=== PATIENT | female | born 1955 | race Caucasian/White ===

== ENCOUNTER 2019-12-14 17:04 | Emergency (ER) | payer MEDICARE, BC ==
[~2019-12-14] VITALS: Ht 165.1 cm; Wt 75.0 kg
[2019-12-14 17:10] VITALS: BP 163/84
--- NOTE | 2019-12-14 17:42 | PHYS DOC ---
Past History Past Medical History: Depression, Hypertension Past Surgical History: Appendectomy, Other Additional Past Surgical Histo: LEFT KNEE, CATARACTS, C-SPINE FUSION Alcohol Use: Occasionally Additional Alcohol Information: REPORTS OCCASIONAL TO HEAVY Adult General Chief Complaint Chief Complaint: HEAD, FACE, NECK, TRAUMA HPI HPI Patient is a 64-year-old female who presents for facial trauma. Patient reports suffering a fall greater than 7 days ago landing on her left parietal lobe area and left orbit. Patient denies any loss of consciousness but admits dull headache ever since. She does not take any blood thinners but admits she has been taking several aspirin for other chronic aches and pains for past 1 month. No vision changes, no falls since, no changes in motor or sensory function, no focal deficits reported Review of Systems Review of Systems Fourteen body systems of review of systems have been reviewed. See HPI for pertinent positives and negative responses, other reddy all other systems are negative, non-pertinent or non-contributory Allergies Allergies Allergies Coded Allergies Type Severity Reaction Last Updated Verified amoxicillin Allergy Unknown 12/14/19 Yes Physical Exam Physical Exam Constitutional: Well developed, well nourished, no acute distress, non-toxic appearance. HENT: Normocephalic, tenderness to palpation of parietal lobe area without any abnormalities seen or felt, ecchymosis around left orbit without palpable abnormality but increased tenderness to lateral portion of orbit, no crepitus, bilateral external ears normal, oropharynx moist, no oral exudates, nose normal. Eyes: PERRLA, EOMI, conjunctiva normal, no discharge. Neck: Normal range of motion, no tenderness, supple, no stridor. Cardiovascular: Heart rate regular, sinus rhythm, no murmurs rubs or gallops Lungs & Thorax: Bilateral breath sounds clear to auscultation Abdomen: Bowel sounds normal, soft, no tenderness, no masses, no pulsatile m asses. Nonsurgical abdomen, no peritoneal signs Skin: Warm, dry, no erythema, no rash. Back: No tenderness, no CVA tenderness. Extremities: No tenderness, no cyanosis, no clubbing, ROM intact, no edema. Neurologic: Alert and oriented X 3, grossly normal motor & sensory function, no focal deficits noted. Psychologic: Affect normal, judgement normal, mood normal. Current Patient Data Vital Signs Vital Signs Date Time Temp Pulse Resp B/P (MAP) Pulse Ox O2 Delivery O2 Flow Rate FiO2 10/26/20 17:10 97.9 87 20 163/84 (110) 97 Room Air EKG EKG [] Radiology/Procedures Radiology/Procedures PROCEDURE: CT HEAD WO CONTRAST Exam: CT head and orbits without contrast INDICATION: Fall today left parietal area TECHNIQUE: Sequential axial images through the head and orbits were obtained without the administration of IV contrast. Comparisons: None FINDINGS: Head: No focal parenchymal lesion or hemorrhage is identified. There is no midline shift or sulcal effacement. No acute vascular territory infarction is identified. Perry-white distinction is preserved. The ventricular system is within normal limits without compression hydrocephalus. The basal cisterns are well maintained. Orbits: Mild extra cranial soft tissue scalp contusion overlying the left lateral orbital ridge. Globes and orbital contents are normal. The visualized portions of the paranasal sinuses and mastoid air cells are well-pneumatized. No acute fractures. IMPRESSION: 1. Mild extra cranial soft tissue scalp contusion overlying the left lateral orbital ridge. Globes and contents are normal. 2. No acute intracranial abnormality. Exposure: One or more of the following in the visualized dose reduction techniques were utilized for this examination: 1. Automated exposure control 2. Adjustment of the MA and/or KV according to patient size Use of iterative of reconstructive technique Electronically signed by: Kay Cabrera MD (12/14/2019 6:18 PM) [facility] Heart Score Risk Factors: Risk Factors: DM, Current or recent (<one month) smoker, HTN, HLP, family history of CAD, obesity. Risk Scores: Risk Factors: DM, Current or recent (<one month) smoker, HTN, HLP, family history of CAD, obesity. Course & Med Decision Making Course & Med Decision Making Pertinent Labs and Imaging studies reviewed. (See chart for details) Discussed most likely diagnosis of head contusion with patient Continued supportive care with ice and Tylenol for as needed pain advised. Patient has PCP follow-up scheduled in upcoming 14 days which I feel is appropriate Strict return precautions were discussed with good understanding, all questions and concerns addressed prior to ER departure in stable condition Dragon Disclaimer Dragon Disclaimer This electronic medical record was generated, in whole or in part, using a voice recognition dictation system. Departure Departure: Impression: Primary Impression: Fall Additional Impression: Pain of left orbit Disposition: 01 DC HOME SELF CARE/HOMELESS Condition: STABLE Referrals: PCP,NO (PCP) Problem Qualifiers TANIA SWEENEY DO Dec 14, 2019 17:42
--- NOTE | 2019-12-14 18:20 | RAD ---
Exam: CT head and orbits without contrast INDICATION: Fall today left parietal area TECHNIQUE: Sequential axial images through the head and orbits were obtained without the administration of IV contrast. Comparisons: None FINDINGS: Head: No focal parenchymal lesion or hemorrhage is identified. There is no midline shift or sulcal effacement. No acute vascular territory infarction is identified. Perry-white distinction is preserved. The ventricular system is within normal limits without compression hydrocephalus. The basal cisterns are well maintained. Orbits: Mild extra cranial soft tissue scalp contusion overlying the left lateral orbital ridge. Globes and orbital contents are normal. The visualized portions of the paranasal sinuses and mastoid air cells are well-pneumatized. No acute fractures. IMPRESSION: 1. Mild extra cranial soft tissue scalp contusion overlying the left lateral orbital ridge. Globes and contents are normal. 2. No acute intracranial abnormality. Exposure: One or more of the following in the visualized dose reduction techniques were utilized for this examination: 1. Automated exposure control 2. Adjustment of the MA and/or KV according to patient size Use of iterative of reconstructive technique Electronically signed by: Kay Cabrera MD (12/14/2019 6:18 PM) [facility]
== END 2019-12-14 18:33 | disposition home or self-care (01) ==
LOC: ER 17:04
DX: R51.9 Headache, unspecified (principal); I10 Essential (primary) hypertension; F32.9 Major depressive disorder, single episode, unspecified; Z88.1 Allergy status to other antibiotic agents; W18.39XA Other fall on same level, initial encounter; Y93.89 Activity, other specified; Y92.89 Other specified places as the place of occurrence of the external cause; Y99.8 Other external cause status
CPT/HCPCS: 70450; 70480; 99285-25